=== PATIENT | female | born 1955 | race Caucasian/White ===

== ENCOUNTER 2016-09-16 18:46 | Emergency (ER) | payer SELFPAY ==
[2016-09-16 19:05] VITALS: BP 153/94
[2016-09-16] MEDS ORDERED: MOTRIN PO ONE (19:28)
--- NOTE | 2016-09-16 20:16 | Cat Scan Report ---
FINAL REPORT PROCEDURE: CT HEAD/BRAIN WO CON TECHNIQUE: Computerized tomography of the head was performed without contrast material. HISTORY: headache s/p direct blow COMPARISON: No prior studies are available for comparison. FINDINGS: No CT evidence of intracranial mass, hemorrhage, acute territorial infarction, or hydrocephalus. The intracranial arteries are symmetric in density. Calvarium is intact. There is a subcutaneous metallic density located lateral and superior to the right lateral orbital wall, measuring 3 millimeters. On the brownfield redevelopment site manager view there is also metallic density overlying the facial structures, not imaged on the cross-sectional images. IMPRESSION: Metallic foreign bodies as above. No CT evidence of acute intracranial abnormality
[2016-09-16] MEDS ORDERED: TETRACAINE 0.5% OU PRN (20:48)
[2016-09-16] MEDS ORDERED: FUL-GLO OP ONE (20:48)
--- NOTE | 2016-09-17 05:48 | Emergency Department Report ---
Entered by GEOVANI CLARK, acting as scribe for ELIJAH KRISHNAMURTHY NP. ED Head Trauma HPI - General Chief complaint: Head Injury Stated complaint: HEAD INJURY Time Seen by Provider: 09/16/16 19:13 Source: patient Mode of arrival: Ambulatory Limitations: No Limitations - History of Present Illness Initial comments: This is a 61 year old female, well nourished in appearance, no acute signs of distress, with PMHx of HTN and seizures presents to the ED with c/o head injury from last night around 1999. Patient states she accidentally hit herself on the forehead with a metal lio while changing a belt on a vacuum silverware cleaner. Patient states she vomited one time about 2 1/2 hours after incident last night. Patient denies any abrasions or lacerations. Patient stated has headache that is described as aching with level of 3/10. Patient denies tunderclap headache. STated headache is gradual onset. Patient also stated she thinks she may have slight swelling to the left eyebrow but denies any trauma or being hit to the region. Denies any eye pain, redness, swelling, blurry vision, or visual changes. Patient denies LOC, stiff neck, chest pain, SOB, trauma, numbness, or tingling. Patient is ambulatory with steady gait and speech is clear. She wears reading glasses. Stated allergies to Codeine and Sulfa. Complaint: head injury, head pain -: Last night Time: 20:00 Mechanism of Injury: machine or tool related (vaccum silverware cleaner metal lio) Location: frontal Loss of Consciousness: no Previous Trauma to this Area: No Place: home Radiation: none Severity: moderate Severity scale (0 -10): 4 Quality: aching Consistency: constant Provoking factors: none known Other Injuries: none Associated Symptoms: vomiting (x1). denies: confusion, amnesia, repetitive questioning, vision changes, nausea, vertigo, syncope, numbness, weakness, tingling, neck pain - Related Data Home Medications Medication Instructions Recorded Confirmed Last Taken Lisinopril [Zestril] 40 mg PO QDAY 09/21/13 09/21/13 1 Day Ago amLODIPine 04/09/16 1 Day Ago Previous Rx's Medication Instructions Recorded Last Taken Type Ibuprofen [Motrin] 600 mg PO Q8H PRN #30 tablet 09/21/13 1 Day Ago Rx Ibuprofen [Motrin 600 MG tab] 600 mg PO Q8H PRN #20 tablet 09/16/16 Unknown Rx Allergies/Adverse reactions: Allergies Allergy/AdvReac Type Severity Reaction Status Date / Time codeine Allergy Headache Verified 09/16/16 19:05 Sulfa (Sulfonamide Allergy Headache Verified 09/16/16 19:05 Antibiotics) ED Review of Systems Comment: All other systems reviewed and negative Constitutional: denies: chills, fever Eyes: as per HPI. denies: eye pain, eye discharge, vision change ENT: denies: ear pain, throat pain, hearing loss Respiratory: denies: cough, shortness of breath, wheezing Cardiovascular: denies: chest pain, palpitations Endocrine: no symptoms reported Gastrointestinal: denies: abdominal pain, nausea, vomiting, diarrhea Genitourinary: denies: urgency, dysuria, discharge Musculoskeletal: denies: back pain, joint swelling, arthralgia Skin: denies: rash, lesions Neurological: headache. denies: weakness, numbness, paresthesias, abnormal gait Psychiatric: denies: anxiety, depression Hematological/Lymphatic: denies: easy bleeding, easy bruising ED Past Medical Hx - Past Medical History Hx Hypertension: Yes Hx Seizures: Yes (x 1) - Surgical History Additional Surgical History: right knee tear repair 2001. tubal ligation - Social History Smoking Status: Current Every Day Smoker Substance Use Type: None - Medications Home Medications: Home Medications Medication Instructions Recorded Confirmed Last Taken Type Ibuprofen [Motrin] 600 mg PO Q8H PRN #30 tablet 09/21/13 1 Day Ago Rx Lisinopril [Zestril] 40 mg PO QDAY 09/21/13 09/21/13 1 Day Ago History amLODIPine 04/09/16 1 Day Ago History Ibuprofen [Motrin 600 MG tab] 600 mg PO Q8H PRN #20 tablet 09/16/16 Unknown Rx ED Physical Exam - General Limitations: No Limitations General appearance: alert, in no apparent distress - Head Head exam: Present: atraumatic, normocephalic, normal inspection - Eye Eye exam: Present: normal appearance, PERRL, EOMI. Absent: scleral icterus, conjunctival injection, nystagmus, periorbital swelling, periorbital tenderness , other (swelling) Pupils: Present: normal accommodation. Absent: irregular - Expanded Eye Exam Expanded Eyelids: Normal Inspection: Left Pupils: Regular, Round: Left, Reactive: Left Sclera/Conjunctival: Normal Inspection: Left Visual acuity (R) = 20/: 15 Visual acuity (L) = 20/: 15 With correction: No IOP measured with: Tonopen (15) - ENT ENT exam: Present: normal exam, normal orophraynx, mucous membranes moist, TM's normal bilaterally, normal external ear exam. Absent: mucous membranes dry - Neck Neck exam: Present: normal inspection, full ROM. Absent: tenderness, meningismus, lymphadenopathy - Respiratory Respiratory exam: Present: normal lung sounds bilaterally. Absent: respiratory distress, wheezes, rales, rhonchi, stridor, chest wall tenderness, accessory muscle use, decreased breath sounds, prolonged expiratory - Cardiovascular Cardiovascular Exam: Present: regular rate, normal rhythm, normal heart sounds. Absent: bradycardia, tachycardia, irregular rhythm, systolic murmur, diastolic murmur, rubs, gallop - GI/Abdominal GI/Abdominal exam: Present: soft, normal bowel sounds. Absent: distended, tenderness, guarding, rebound, rigid, diminished bowel sounds - Rectal Rectal exam: Present: deferred - Extremities Exam Extremities exam: Present: normal inspection, full ROM, normal capillary refill. Absent: tenderness, pedal edema, joint swelling, calf tenderness - Back Exam Back exam: Present: normal inspection, full ROM. Absent: tenderness, CVA tenderness (R), CVA tenderness (L), muscle spasm, paraspinal tenderness, vertebral tenderness, rash noted - Neurological Exam Neurological exam: Present: alert, oriented X3, CN II-XII intact, normal gait, reflexes normal - Expanded Neurological Exam Expanded Patient oriented to: Present: person, place, time Speech: Present: fluid speech Cranial nerves: EOM's Intact: Normal, Gag Reflex: Normal, Tongue Deviation: Normal, Nystagmus: Normal, Facial Sensation: Normal, Facial Palsy with Forehead Movement: Normal, Facial Palsy without Forehead Movement: Normal Cerebellar function: Finger to Nose: Normal, Heel to [place]: Normal, Romberg: Normal Upper motor neuron: [place]icho Neglect: Normal, Pronator Drift: Normal, Babinski Sign : Normal, Sensory Extinction: Normal Sensory exam: Upper Extremity Light Touch: Normal, Upper Extremity Pin Prick: Normal, Upper Extremity Temperature: Normal, UE 2 Point Discrimination: Normal, Lower Extremity Light Touch: Normal, Lower Extremity Pin Prick: Normal, Lower Extremity Temperature: Normal, LE 2 Point Discrimination: Normal Motor strength exam: RUE: 5, LUE: 5, RLE: 5, LLE: 5 DTR: bicep (R): 2+, bicep (L): 2+, tricep (R): 2+, tricep (L): 2+, knee (R): 2+ , knee (L): 2+, ankle (R): 2+, ankle (L): 2+ Best Eye Response ([place]): (4) open spontaneously Best Motor Response ([place]): (6) obeys commands Best Verbal Response ([place]): (5) oriented Surya Total: 15 - Psychiatric Psychiatric exam: Present: normal affect, normal mood - Skin Skin exam: Present: warm, dry, intact, normal color. Absent: rash - Other Other exam information: Under phillips lamp, no foreign body or abrasion noted to bilateral eyes,. no swelling noted. No redness. no abrasions or lac noted. ED Course Vital Signs 09/16/16 18:56 Temperature 98.0 F Pulse Rate 89 Respiratory 17 Rate Blood Pressure 153/94 O2 Sat by Pulse 100 Oximetry - Reevaluation(s) Reevaluation #1: 09/16/16 20:48 Patient is able to speak in full sentences with no signs of distress noted. - Medical Decision Making ED course this is a 61-year-old female who presented with contusion to the head 1- patient was examined by myself. CT scan of the head without contrast is obtained. Dictated by Dr. Jimenez. Impression subcutaneous metallic density located lateral and superior to the right lateral orbital wall measuring 3 mm. The metallic density overlying the facial structures. No acute CT evidence of acute intracranial abnormalities. Patient was notified of the CT findings. Patient stated when she acute around age of 14 face in the region of the lateral orbital wall and right side. This correlates with the foreign body that is noted on the CT findings. There is no acute signs of abrasion or laceration. 2- patient was treated with ibuprofen 100 mg by mouth in the ED for pain. They stated headache has subsided at the medical treatment in the ED. 3- patient was discharged with ibuprofen and was instructed to follow-up with primary care doctor in 3-5 days or symptoms such as severe headache, chest pain , shortness of breath, confusion, blurred vision, stiff neck fever or chills return to the ER as soon as possible. 4- At time time of discharge, the patient does not seem toxic or ill in appearance. No acute signs of distress noted. Patient agrees to discharge treatment plan of care. No further questions noted by the patient. - NEXUS Criteria Focal neurological deficit present: No Midline spinal tenderness present: No Altered level of consciousness: No Intoxication present: No Distracting injury present: No NEXUS results: C-Spine can be cleared clinically by these results. Imaging is not required. ED Disposition Clinical Impression: Contusion Qualifiers: Encounter type: initial encounter Contusion area: head Contusion of head detail : scalp Qualified Code(s): S00.03XA - Contusion of scalp, initial encounter Disposition: TO HOME OR SELFCARE Is pt being admited?: No Does the pt Need Aspirin: No Condition: Stable Instructions: Contusion in Adults (ED), Ibuprofen (By mouth) Additional Instructions: follow-up with primary care doctor in 3-5 days or symptoms such as severe headache, chest pain, shortness of breath, confusion, blurred vision, stiff neck fever or chills return to the ER as soon as possible. Take ibuprofen as needed for pain. Prescriptions: Ibuprofen [Motrin 600 MG tab] 600 mg PO Q8H PRN #20 tablet PRN Reason: Pain Referrals: PRIMARY CARE, [Primary Care Provider] - 3-5 Days SHANNAN SOLER MD [Staff Physician] - 3-5 Days [facility] [Outside] - 3-[address] [facility] [Outside] - 3-5 Days Forms: Work/School Release Form(ED) This documentation as recorded by the EDUARDO ivan PEARL,accurately reflects the service I personally performed and the decisions made by me,ELIJAH KRISHNAMURTHY, PAULA.
== END 2016-09-16 22:26 | disposition home or self-care (01) ==
LOC: ED 18:46
DX: S00.03XA Contusion of scalp, initial encounter (principal); W22.8XXA Striking against or struck by other objects, initial encounter; Y93.9 Activity, unspecified; Y92.9 Unspecified place or not applicable; Y99.9 Unspecified external cause status
CPT/HCPCS: 70450; 99283